=== PATIENT | female | born 2000 | race African-American/Black ===

== ENCOUNTER 2022-05-09 16:33 | Emergency (ER) | payer OTHER, SELFPAY ==
[2022-05-09 18:13] VITALS: BP 139/81; PULSE 88; RESP 14; TEMP 37.1; O2SAT 98
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
[2022-05-09] MEDS: KETOROLAC 30 MG/ML VIAL (*BKC) IM (21:02)
[2022-05-09 21:40] VITALS: BP 118/74; PULSE 67; RESP 18; O2SAT 100
== END 2022-05-09 22:20 | disposition home or self-care (01) ==
LOC: ANHED 22:10
PROVIDERS: Emergency Provider Emergency Medicine
DX: T14.8XXA Other injury of unspecified body region, initial encounter (principal); V89.2XXA Person injured in unspecified motor-vehicle accident, traffic, initial encounter
CPT/HCPCS: 96372; 99283; J1885